=== PATIENT | male | born 1965 | race Caucasian/White ===

== ENCOUNTER 2022-04-21 07:30 | Inpatient (IN) | payer OTHER, SELFPAY ==
[2022-04-21] VITALS (60 sets, daily range): BP systolic 105–204; BP diastolic 66–143; PULSE 40–115; RESP 12–20; TEMP 36.3–36.7; O2SAT 91–98; BMI 27.3; BMI 28.2
--- NOTE | 2022-04-21 07:20 | ECG_ITS ---
APPROVED REPORT Exam: Resting ECG HR:115 bpm ECG Measurements Heart Rate 115 AXES ND 174 P 84 QRSd 121 QRS -76 QT 338 T 91 QTc 406 Conclusion SINUS TACHYCARDIA LEFT ATRIAL ENLARGEMENT [-0.15mV P-WAVE IN V1/V2] LEFT AXIS DEVIATION [QRS AXIS < -30] POSSIBLE LEFT VENTRICULAR HYPERTROPHY [VOLTAGE CRITERIA PLUS LAE OR QRS WIDENING] ST DEVIATION AND MODERATE T-WAVE ABNORMALITY, CONSIDER LATERAL ISCHEMIA [-0.1+ mV T-WAVE IN I/aVL/V5/V6] ABNORMAL ECG UNCONFIRMED REPORT Electronically signed by : Brad Rosas MD 04/21/2022 21:07:28
--- NOTE | 2022-04-21 07:50 | XR_ITS ---
PROCEDURE INFORMATION: Exam: XR Chest Exam date and time: 04/21/2022 8:29 AM Age: 57 years old Clinical indication: Pain; Chest pressure; Additional info: Chest pain TECHNIQUE: Imaging protocol: Radiologic exam of the chest. Views: 1 view. COMPARISON: No relevant prior studies available. FINDINGS: Lungs: Hyperexpanded lung gould consistent with COPD Pleural spaces: Unremarkable. No pleural effusion. No pneumothorax. Heart/Mediastinum: Cardiomegaly Bones/joints: Severe degenerative changes in the glenohumeral joints IMPRESSION: Hyperexpanded lung gould consistent with COPD
--- NOTE | 2022-04-21 07:57 | HMH.EDCP ---
Discharge Plan Disposition Chief Complaint: Chest Pain Clinical Impressions Clinical Impression: Chest pain, Hypertensive emergency, Elevated troponin, Renal insufficiency Discharge ED Provider: William (ED)Andrea Chest Pain HPI General Chief Complaint: Chest Pain Stated Complaint: SOA Time Seen by Provider: 04/21/22 07:57 Mode of Arrival: Ambulatory Source of Information: Patient, Spouse and Medical Record Limitations: No Limitations Description of Symptoms (Recalled from ER Triage Doc. by RN): pt comes in with c/o chest pain that began this morning. shortness of breath was associated with this. pt is an ex smoker. pt has not seen a primary care provider since 2021. recently pt seen dr ivy and was referred to a sand conditioner in [place]. pt states he has initial appt with them may 30. pt reports having a history of high blood pressure. and he did take 3 325mg aspirin this am around 529. History of Present Illness HPI narrative: pt with chest tightness which began on and off this am over the last 2 hrs and has assoc sob - has hx of htn - no known ht dis - no diabetes MD complaint: chest pain indicative of cardiac Onset (ago): hour(s) Duration: now resolved Activity at onset: during rest Pain location: substernal Severity: moderate Quality: tightness Pain radiation: none Risk Factors for CAD: Hypertension and Family Hx of CAD Treatments prior to or on arrival for Cardiac Chest Pain: aspirin DESTINI Score for Non-Stemi Age of Patient: 50-59 years old Heart Rate: 110-149 bpm Systolic Blood Pressure: 160-199 mmHg Serum Creatinine: 1.60-1.99 mg/dl CHF [place] Class: I-No CHF Other Risk Factors: Elevated Cardiac Enzymes or Biomarkers Non-Stemi Risk Score: 102 Risk Stratification: 1-108 = Low Risk Related Data Home Medications Medication Instructions Recorded Confirmed garlic 1,000 mg capsule 1,000 mg PO DAILY Supplement 04/21/22 04/21/22 multivitamin 1 tab PO DAILY Supplement 04/21/22 04/21/22 Allergies Allergy/AdvReac Type Severity Reaction Status Date / Time No Known Allergies Allergy Verified 04/21/22 07:50 [facility] Disclaimer: The information contained in this section may have been updated after the patient was seen, as this information can be updated by other users. Social History Smoking Status: Former smoker alcohol intake: never current occupational status: employed Travel in the last 8 weeks: None ROS Obtained: Yes All systems reviewed & no additional complaints except as documented Physical Exam General General appearance: alert Head Head exam: normocephalic Eye Eye exam: Present PERRL and EOMI ENT ENT exam: Present mucous membranes moist Neck Neck exam: Present trachea midline Respiratory Respiratory exam: Present normal lung sounds bilaterally; Absent respiratory distress Cardiovascular Cardiovascular exam: Present tachycardia and systolic murmur Abdominal Exam Abdominal exam: Present soft Extremities Exam Extremities exam: Present full ROM; Absent calf tenderness Neurological Exam Neurological exam: Present alert and CN II-XII intact; Absent motor sensory deficit Skin Skin exam: Absent rash Medical Decision Making Medical Records Medical records reviewed: Yes I reviewed the patient's medical records. Fabricio Inquiry Pt receiving controlled substance: No Vital Signs: 04/21/22 07:42 04/21/22 07:46 04/21/22 08:00 Temperature 97.6 F Temperature Source Oral Pulse Rate 99 H 97 H Pulse Rate [Left] 115 H Respiratory Rate 18 12 Blood Pressure 183/126 H 196/134 H Blood Pressure [Right Arm] 204/143 H Blood Pressure Mean 145 148 Blood Pressure Mean [Right Arm] 163 Blood Pressure Source 02 Sat by Pulse Oximetry 97 98 98 Oxygen Delivery Method Room Air 04/21/22 08:10 04/21/22 08:10 04/21/22 08:20 Temperature Temperature Source Pulse Rate 99 H 82 Pulse Rate [Left] Respiratory Rate 12 Blood Pressure 189/125 H 192/136 H 174/11
[2022-04-21 08:09] LABS: Basophils # 0.1 K/mm3 (0-0.2); Eosinophils # 0.4 K/mm3 (0.0-0.4); Eosinophils % 6.3 % (0.1-12.0); Hematocrit 43.2 % (42.0-52.0); Hemoglobin 14.2 g/dL (14.1-18.0); Lymphocytes # 1.4 K/mm3 (0.7-4.5); Lymphocytes % 20.5 % (10-50); Mean Corpuscular HGB Conc 32.9 g/dL (31.8-35.4); Mean Corpuscular Hemoglobin 30.3 pg (27.0-31.2); Mean Corpuscular Volume 92.1 fl (80-94); Mean Platelet Volume 7.5 fl (7.4-10.4); Monocytes # 0.4 K/mm3 (0.1-1.0); Monocytes % 5.6 % (1.7-9.3); Neutrophils # 4.7 K/mm3 (1.8-7.8); Neutrophils % 66.7 % (37.0-80.0); Platelet Count 263 K/mm3 (142-424); Red Blood Count 4.69 M/mm3 (4.60-6.20); Red Cell Distribution Width 14.4 % (11.5-17.5)
--- NOTE | 2022-04-21 08:16 | PC.NURSE ---
field service tech @ BS for chest x-ray
--- NOTE | 2022-04-21 08:16 | PC.NURSE ---
rad at bedside
[2022-04-21 08:23] LABS: Blood Urea Nitrogen 21 mg/dl (9-20); Calcium 9.2 mg/dl (8.4-10.2); Carbon Dioxide 29 mmol/L (22.0-30.0); Chloride 103 mmol/L (98-107); Creatinine Clearance Estimated 54 mL/min (50-200); Estimated Glomerular Filt Rate 41 ml/min (>60); GFR (African American) 50 ML/MIN (>60); Glucose 95 mg/dl (74-100); Sodium 138 mmol/L (136-145)
[2022-04-21 08:34] LABS: Troponin I 0.14 ng/ml (0.00-0.034)
[2022-04-21 08:38] LABS: Alanine Aminotransferase 18 U/L (12-78); Albumin Level 4.8 g/dl (3.5-5.0); Alkaline Phosphatase 79 U/L (38-126); Aspartate Amino Transferase 35 U/L (17-59); Bilirubin,Direct 0.5 mg/dl (0.0-0.4); Bilirubin,Indirect 0.5 mg/dL (0.0-0.9); Bilirubin,Unconjugated 0.5 mg/dL (0.0-1.1); Chol/HDL Ratio 5.4 (1-3.5); Cholesterol 307 mg/dl (140-200); HDL Cholesterol 57 mg/dl (40-60); Magnesium 2.4 mg/dl (1.6-2.3); Total Protein,Serum 9.9 g/dl (6.3-8.2); Triglycerides 100 mg/dl (30-150); VLDL Cholesterol 20 mg/dL (0-40)
--- NOTE | 2022-04-21 08:48 | ECG_ITS ---
APPROVED REPORT Exam: Resting ECG HR:83 bpm ECG Measurements Heart Rate 83 AXES AZ 197 P 78 QRSd 114 QRS -72 QT 382 T 91 QTc 421 Conclusion SINUS RHYTHM LEFT ATRIAL ENLARGEMENT [-0.15mV P-WAVE IN V1/V2] LEFT AXIS DEVIATION [QRS AXIS < -30] LEFT VENTRICULAR HYPERTROPHY AND ST-T CHANGE [VOLTAGE CRITERIA PLUS ST/T ABNORMALITY] ABNORMAL ECG UNCONFIRMED REPORT Electronically signed by : Brad Rosas MD 04/21/2022 21:07:18
--- NOTE | 2022-04-21 08:51 | HMH.ITSTN ---
advised Dr. Thomas GFR is 41-- cancel scan
--- NOTE | 2022-04-21 09:01 | PC.NURSE ---
on the phone with
--- NOTE | 2022-04-21 09:02 | PC.NURSE ---
maryuri at bedside
[2022-04-21 09:11] LABS: Free T4 (Free Thyroxine) 0.29 ng/dl (0.78-2.19)
[2022-04-21 09:15] LABS: Coronavirus 19, PCR Not Detected (NotDetected); Influenza A, PCR Not Detected (NotDetected); Influenza B, PCR Not Detected (NotDetected)
--- NOTE | 2022-04-21 09:18 | PC.NURSE ---
Deloris RN @BS
--- NOTE | 2022-04-21 09:19 | PC.NURSE ---
nitro drip adjusted per protocol see MAR
--- NOTE | 2022-04-21 09:23 | PC.NURSE ---
personnel clerks supervisor has been called for admission
--- NOTE | 2022-04-21 09:45 | PC.NURSE ---
attempted to call report to second floor
[2022-04-21 09:46] LABS: NT Pro Brain Natriuretic Pep. 9370 pg/mL (0-125)
--- NOTE | 2022-04-21 10:08 | PC.NURSE ---
gave report to marlena on 2nd floor, awaiting results of covid/flu test
--- NOTE | 2022-04-21 10:38 | PC.NURSE ---
spoke to myla about hospitilist about admit order
[2022-04-21 10:52] LABS: Troponin I 0.15 ng/ml (0.00-0.034)
--- NOTE | 2022-04-21 10:55 | PC.NURSE ---
arrived to floor by W/C from ED
--- NOTE | 2022-04-21 11:06 | PC.NURSE ---
1038 Er Staff on phone with Dr Leon asking for admit order to be entered.
--- NOTE | 2022-04-21 13:04 | PC.NURSE ---
1100 pt transported to unit by Krish Dowell RN. Nitro drip infusing at 60mcg/min 1200 drip increased to 70mcg/min r/t bp 167/107
--- NOTE | 2022-04-21 13:19 | EXP.HP ---
History of Present Illness *Admission Date: 04/21/22 *Reason for visit:: Chief Complaint: Chest Pain *History of present illness: This is a 57-year-old male who presents to [facility] emergency department with concerns of chest pain that started the morning of ED presentation. His past medical history significant for hypertension, hypothyroidism, tobacco dependence and medical noncompliance. He reports that approximately 5 AM he awoke and felt chest pain characterized as something sitting on my chest and tightness that radiated across front of his chest into his shoulders. He rated the pain greater than 8 on a 1-10 pain scale with associated shortness of air. The pain is lasted greater than 2 hours. He reports taking 3 aspirin at home. He reports it was difficult for him to walk across the parking lot to get to the ED secondary to shortness of air. In the ED his presenting blood pressure was 204/143 and his labs were remarkable for elevated troponin x2 with a BNP of 9370. His EKG did not identify STEMI changes. His chest x-ray was consistent with COPD. His ED TSH was 205. He denies confusion/mental status changes, lethargy, chills or low blood sugars. [facility] Medical History (Updated 04/21/22 @ 14:12 by Boni Leon MD) Anxiety COPD (chronic obstructive pulmonary disease) HTN (hypertension) Hyperlipidemia Hypothyroid Kidney stones Seasonal depression Surgical History H/O ureteroscopy Family History Other Coronary artery disease Hypertension Stomach cancer Throat cancer Social History Smoking Status: Former smoker smoking status stop date: 04/01/22 alcohol intake: current current occupational status: employed Travel in the last 8 weeks: None housing: house lives independently: Yes marital status: education level: high school pets and animals: Yes pets and animals: cat(s), dog(s) and farm animals Review of Systems Review of Systems Review of systems:: pertinent systems reviewed and negative unless documented below *Cardiovascular Cardiovascular: Reports chest pain and Reports chest pain at rest Meds Home Medications and Allergies Home Medications Medication Instructions Recorded Confirmed Type garlic 1,000 mg capsule 1,000 mg PO DAILY Supplement 04/21/22 04/21/22 History multivitamin 1 tab PO DAILY Supplement 04/21/22 04/21/22 History New Prescriptions to Start Prescriptions: Allergies Allergy/AdvReac Type Severity Reaction Status Date / Time No Known Allergies Allergy Verified 04/21/22 07:50 Exam Data for Last 24 hours Vital signs and Labs for Last 24 Hours: Temp Pulse Resp BP Pulse Ox 97.8 F 79 20 164/93 H 96 04/21/22 11:29 04/21/22 13:00 04/21/22 13:00 04/21/22 13:00 04/21/22 13:00 Laboratory Results - last 24 hr 04/21/22 07:33: WBC 7.0, RBC 4.69, Hgb 14.2, Hct 43.2, MCV 92.1, MCH 30.3, MCHC 32.9, RDW 14.4, Plt Count 263, MPV 7.5, Neut % (Auto) 66.7, Lymph % (Auto) 20.5, [place] % (Auto) 5.6, Eos % (Auto) 6.3, Baso % (Auto) 1.0, Neut # (Auto) 4.7, Lymph # (Auto) 1.4, [place] # (Auto) 0.4, Eos # (Auto) 0.4, Baso # (Auto) 0.1 04/21/22 07:33: Sodium 138, Potassium 4.0, Chloride 103, Carbon Dioxide 29, Anion Gap 10.0, BUN 21 H, Creatinine 1.70 H, Estimated Creat Clear 54, Estimated GFR 41 L, Est GFR ( Amer) 50 L, Glucose 95, Calcium 9.2, Troponin I 0.14 H 04/21/22 07:33: Magnesium 2.4 H, Total Bilirubin 1.0, Direct Bilirubin 0.5 H, Conjugated Bilirubin 0.0, Indirect Bilirubin 0.5, Unconjugated Bilirubin 0.5, AST 35, ALT 18, Alkaline Phosphatase 79, Total Protein 9.9 H, Albumin 4.8, TSH 205.00 H 04/21/22 07:33: Triglycerides 100, Cholesterol 307 H, LDL Cholesterol Direct 164.20 H, VLDL Cholesterol 20, HDL Cholesterol 57, Cholesterol/HDL Ratio 5.4 H 04/21/22 07:33: Free T4 0.29
[2022-04-21 14:55] LABS: Troponin I 0.21 ng/ml (0.00-0.034)
--- NOTE | 2022-04-21 16:06 | PC.NURSE ---
Addendum entered by Camilla Pina RN 04/21/22 17:33: critical lab value received [address] Leon of critical lab value. nno 1730 Original Note: critical lab value received at 1455. troponin 0.[address] Leon face to face of lab value. 1510. no new orders.
[2022-04-21 17:21] LABS: Troponin I 0.21 ng/ml (0.00-0.034)
--- NOTE | 2022-04-21 19:32 | PC.NURSE ---
BP 181/114, Nitro gtt titrated to 80 mcg/min at this time.
--- NOTE | 2022-04-21 20:35 | PC.NURSE ---
Pt bp 184/118, nitro gtt titrated up to 90mcg/min at this time.
--- NOTE | 2022-04-21 23:00 | ECG_ITS ---
APPROVED REPORT Exam: Resting ECG HR:68 bpm ECG Measurements Heart Rate 68 AXES CO 186 P 71 QRSd 118 QRS -57 QT 432 T 118 QTc 450 Conclusion SINUS RHYTHM POSSIBLE LEFT ATRIAL ENLARGEMENT [-0.1mV P-WAVE IN V1/V2] LEFT AXIS DEVIATION [QRS AXIS < -30] LEFT VENTRICULAR HYPERTROPHY AND ST-T CHANGE [VOLTAGE CRITERIA PLUS ST/T ABNORMALITY] ABNORMAL ECG UNCONFIRMED REPORT Electronically signed by : Brad Rosas MD 04/22/2022 21:03:11
--- NOTE | 2022-04-21 23:00 | PC.NURSE ---
2230 Pt became very diaphoretic c/o nausea. BP dropped to 105/67, HR dropped to into 40s. Nitro put on standby, PER DIEM PHYSICAL THERAPIST called to bedside and EKG performed. Pt now states he feels much better, BP 157/106, HR 73. Nitro restarted at 45mcg/min.
[2022-04-22] VITALS (29 sets, daily range): BP systolic 140–190; BP diastolic 72–113; PULSE 64–90; RESP 14–20; TEMP 36.4–36.9; O2SAT 93–98; BMI 28.2
--- NOTE | 2022-04-22 03:35 | PC.NURSE ---
Drip titrated up to 55mcg/min per Benito Warner. BP 169/96.
[2022-04-22 06:29] LABS: Basophils % 0.5 % (0.1-2.0); Eosinophils # 0.1 K/mm3 (0.0-0.4); Eosinophils % 0.6 % (0.1-12.0); Hematocrit 33.8 % (42.0-52.0); Lymphocytes # 0.7 K/mm3 (0.7-4.5); Lymphocytes % 8.2 % (10-50); Mean Corpuscular HGB Conc 32.6 g/dL (31.8-35.4); Mean Corpuscular Hemoglobin 30.1 pg (27.0-31.2); Mean Corpuscular Volume 92.2 fl (80-94); Mean Platelet Volume 8.1 fl (7.4-10.4); Monocytes # 0.4 K/mm3 (0.1-1.0); Neutrophils # 7.2 K/mm3 (1.8-7.8); Neutrophils % 85.7 % (37.0-80.0); Platelet Count 211 K/mm3 (142-424); Red Blood Count 3.67 M/mm3 (4.60-6.20); Red Cell Distribution Width 14.6 % (11.5-17.5); White Blood Count 8.4 K/mm3 (4.8-10.8)
--- NOTE | 2022-04-22 06:31 | PC.NURSE ---
Pt remains on Nitro gtt at 55mcg/min. Maintaining SBP <160. Current BP 155/83. Pt has remained BBB w/ inv. T waves on tele t/o shift. Occasional PVC noted. Lung sounds clear. at bedside. Call light within reach.
[2022-04-22 06:32] LABS: Blood Urea Nitrogen 24 mg/dl (9-20); Calcium 8.5 mg/dl (8.4-10.2); Carbon Dioxide 24 mmol/L (22.0-30.0); Chloride 105 mmol/L (98-107); Creatinine Clearance Estimated 59 mL/min (50-200); Estimated Glomerular Filt Rate 44 ml/min (>60); GFR (African American) 54 ML/MIN (>60); Glucose 108 mg/dl (74-100); Sodium 133 mmol/L (136-145)
[2022-04-22 06:53] LABS: MANUAL DIFFERENTIAL MANUAL DIFFERENTIAL (MANUAL DIFF)
[2022-04-22 07:50] LABS: Lymphocytes % 12 % (10-50); Monocytes % 4 % (2-9); Neutrophils % 84 % (42-76); Platelet Estimate Normal; RBC Morphology Normal; Total Cells Counted 100
[2022-04-22 07:51] LABS: Hemoglobin A1C 5.3 % (4.0-6.0)
--- NOTE | 2022-04-22 08:44 | ECG_ITS ---
APPROVED REPORT Exam: Resting ECG HR:82 bpm ECG Measurements Heart Rate 82 AXES MD 175 P 29 QRSd 114 QRS -55 QT 398 T 107 QTc 436 Conclusion SINUS RHYTHM POSSIBLE LEFT ATRIAL ENLARGEMENT [-0.1mV P-WAVE IN V1/V2] LEFT AXIS DEVIATION [QRS AXIS < -30] LEFT VENTRICULAR HYPERTROPHY AND ST-T CHANGE [VOLTAGE CRITERIA PLUS ST/T ABNORMALITY] ABNORMAL ECG UNCONFIRMED REPORT Electronically signed by : Brad Rosas MD 04/22/2022 21:01:51
--- NOTE | 2022-04-22 10:19 | IR_ITS ---
APPROVED REPORT Patient Location: Inpatient [facility] Door Liner: HARIS Yang RT (R) PROCEDURES Selective coronary angiogram Drug-eluting stent deployment to the proximal circumflex artery Drug-eluting stent deployment to the mid LAD Bilateral selective renal angiography INDICATION Acute non-ST elevation myocardial infarction, Acute critical coronary disease, Malignant hypertension, Chronic renal failure creatinine 1.6, Renovascular hypertension, Suspected renal artery stenosis Informed consent was obtained prior to the procedure. COMPLICATIONS None Estimated Blood Loss: Less than 10 mls TECHNIQUE One percent lidocaine used to anesthetize the right anterior aspect of the wrist. The right radial artery was accessed via the Seldinger technique. A 6 Arabic sheath was placed in the right radial artery. 2.5 mg of verapamil, 800 mcg of nitroglycerin, 1mg Lidocaine and 5000 U Heparin were given through the arterial sheath. The papa catheter was also used to perform selective coronary angiography. At the end the diagnostic angiogram therapeutic heparin was administered giving a therapeutic ACT and the guide catheter was placed in left main artery followed by Choice PT extra-support wire being placed on the circumflex artery. A 3.5 x 18 mm resolute [place] stent was deployed at 20 rebecca in the proximal circumflex artery reducing the severe stenosis to 0%. An additional wire was placed on the LAD and a 3.5 x 38 mm resolute [place] stent was deployed at 14 rebecca reducing the severe stenosis to 0%. JORGE-3 flow was present before and after the procedure down both the LAD and the circumflex artery. At the end of the diagnostic heart procedure a JR4 guide catheter was used to perform bilateral selective renal angiography. At the end the procedure the apparatus was removed the sheath was removed and hemostasis was achieved using TR banding patient was transferred the postop putting in stable condition ANGIOGRAPHIC RESULTS The left main artery Normal The left anterior descending artery Has a long proximal 30 to 40% smooth stenosis which then has a 70 to 80% concentric mid vessel stenosis The circumflex artery Is a large nondominant vessel with a proximal critical 90% stenosis. A large second obtuse marginal artery has a proximal 40 to 50% stenosis The right coronary artery Large dominant with mild 10 to 20% luminal irregularities The GONZALEZ ventriculogram reveals Not performed The left ventricular end-diastolic pressure Not measured Left renal artery singular normal Right renal artery singular with ostial 10 to 20% eccentric stenosis IMPRESSION Critical coronary disease as described above with successful stenting of the proximal circumflex artery critical disease reduced to 0% with 1 drug-eluting stent Severe disease in the mid LAD with successful stenting reducing the stenosis to 0% with 1 drug-eluting stent Persistent mild to moderate disease in the proximal LAD and a large second obtuse marginal artery as described above Mild left renal artery stenosis PLAN 1. Brilinta 90 twice daily plus aspirin 81 mg daily 2. Aggressive control of hypertension 3. Treatment of hypertensive nephropathy with beta-blockers and if patient can tolerate CORNELIUS inhibitors 4. LDL less than 55 to be achieved with high intensity statin 5. Avoidance of tobacco products 6. Risk factor modification Electronically signed by : Oskar Zimmerman MD 04/22/2022 14:25:03
--- NOTE | 2022-04-22 12:09 | EXP.CARD.CON ---
History of Present Illness History of Present Illness Consult date: 04/22/22 Requesting physician: Boni Leon Consult reason: chest pain and hypertension Chief complaint: chest pain, htn History of present illness: 57 year old white male, with significant past medical hx for HTN, Hypothyroidism, tobacco dependence and medical non compliance presented to ER with complaint of midsternal chest pressure, radiating across chest and into shoulders, associated with soa and mild nausea and fatigue. Patient reports symptoms started at 5am upon awakening and continued which prompted him to come to ER. Reports upon presenting to ER, had difficulty ambulating into facility from car due to his soa. Upon presentation to ED, BP was elevated with systolic BP being greater than 200. Labs significant as follow: WBC 8.4, RBC 3.6, hemoglobin 11, sodium 133, potassium 4.0, BUN 24, creatinine 1.6, and troponin 0.21 trending to 0.2. Chest x-ray was positive for hyperexpanded lung gould consistent with COPD. Initial EKG was sinus tachycardia with a rate of 115, possible LVH, ST deviation and moderate T wave abnormality noted, with st depression noted in V6. Patient was admitted for NSTEMI, hypertensive urgency, and further evaluation by cardiology [facility] Disclaimer: The information contained in this section may have been updated after the patient was seen, as this information can be updated by other users. Medical History (Updated 04/21/22 @ 14:12 by Boni Leon MD) Anxiety COPD (chronic obstructive pulmonary disease) HTN (hypertension) Hyperlipidemia Hypothyroid Kidney stones Seasonal depression Surgical History H/O ureteroscopy Family History Other Coronary artery disease Hypertension Stomach cancer Throat cancer Social History Smoking Status: Former smoker smoking status stop date: 04/01/22 alcohol intake: current current occupational status: employed Travel in the last 8 weeks: None housing: house lives independently: Yes marital status: education level: high school pets and animals: Yes pets and animals: cat(s), dog(s) and farm animals Review of Systems Review of Systems Review of systems:: pertinent systems reviewed and negative unless documented below Constitutional Constitutional: Reports system reviewed and no additional complaints, except as documented *Cardiovascular Cardiovascular: Reports system reviewed and no additional complaints, except as documented, Reports chest pain and Reports dyspnea *Respiratory Respiratory: Reports system reviewed and no additional complaints, except as documented and Reports dyspnea *Gastrointestinal Gastrointestinal: Reports system reviewed and no additional complaints, except as documented *Neurologic Neurologic: Reports system reviewed and no additional complaints, except as documented and Denies confusion Psychiatric Psychiatric: Reports system reviewed and no additional complaints, except as documented and Denies confusion Exam Data for Last 24 hours Vital signs and Labs for Last 24 Hours: Temp Pulse Resp BP Pulse Ox 97.7 F 82 18 182/113 H 96 04/22/22 08:00 04/22/22 10:00 04/22/22 10:00 04/22/22 10:00 04/22/22 10:00 Laboratory Results - last 24 hr 04/21/22 14:00: Troponin I 0.21 H 04/21/22 16:45: Troponin I 0.21 H 04/21/22 19:50: Troponin I 0.20 H 04/22/22 05:28: Hemoglobin A1c 5.3 04/22/22 05:28: WBC 8.4, RBC 3.67 L, Hgb 11.0 L D, Hct 33.8 L, MCV 92.2, MCH 30.1, MCHC 32.6, RDW 14.6, Plt Count 211, MPV 8.1, Neut % (Auto) 85.7 H, Lymph % (Auto) 8.2 L, [place] % (Auto) 5.0, Eos % (Auto) 0.6, Baso % (Auto) 0.5, Neut # (Auto) 7.2, Lymph # (Auto) 0.7, [place] # (Auto) 0.4, Eos # (Auto) 0.1, Baso # (Auto) 0.0, Total Counted 100, Neutrophils % (Manual) 84 H, Lymphocytes % (Manual) 12, Monocytes % (Manu
--- NOTE | 2022-04-22 15:08 | PC.NURSE ---
per EDUARD Filed from clinical laboratory scientist, pt can stay off nitro gtt if SBP stays at 160 or below
[2022-04-22 16:13] LABS: CATHL Activated Clotting Time 253 SEC (74-125)
--- NOTE | 2022-04-22 17:53 | EXP.PN ---
Subjective *Date: 04/22/22 *Time: 17:53 Interval history: Date of service 04/22/2022 The patient reports no acute events overnight. Nursing staff report that he remains afebrile with stable vital signs and saturating appropriately on room air. He is due for his left heart cath today. Exam Data for Last 24 hours Vital signs and Labs for Last 24 Hours: Temp Pulse Resp BP Pulse Ox 98.4 F 78 20 165/95 H 95 04/22/22 16:00 04/22/22 15:05 04/22/22 15:05 04/22/22 15:05 04/22/22 15:05 Laboratory Results - last 24 hr 04/21/22 19:50: Troponin I 0.20 H 04/22/22 05:28: Hemoglobin A1c 5.3 04/22/22 05:28: WBC 8.4, RBC 3.67 L, Hgb 11.0 L D, Hct 33.8 L, MCV 92.2, MCH 30.1, MCHC 32.6, RDW 14.6, Plt Count 211, MPV 8.1, Neut % (Auto) 85.7 H, Lymph % (Auto) 8.2 L, [place] % (Auto) 5.0, Eos % (Auto) 0.6, Baso % (Auto) 0.5, Neut # (Auto) 7.2, Lymph # (Auto) 0.7, [place] # (Auto) 0.4, Eos # (Auto) 0.1, Baso # (Auto) 0.0, Total Counted 100, Neutrophils % (Manual) 84 H, Lymphocytes % (Manual) 12, Monocytes % (Manual) 4, Platelet Estimate Normal, RBC Morphology Normal 04/22/22 05:28: Sodium 133 L, Potassium 4.0, Chloride 105, Carbon Dioxide 24, Anion Gap 8.0, BUN 24 H, Creatinine 1.60 H, Estimated Creat Clear 59, Estimated GFR 44 L, Est GFR ( Amer) 54 L, Glucose 108 H, Calcium 8.5 04/22/22 15:05: Activated Clotting Time 253 H* I & O for Last 24 hours: Intake & Output 04/19/22 04/20/22 04/21/22 04/22/22 23:59 23:59 23:59 23:59 Intake Total 751.100 / 751.100 0 / 0 Output Total 150 / 150 450 / 450 Balance 601.100 / 601.100 -450 / -450 Weight 84.141 kg 84.459 kg Constitutional Constitutional: no acute distress *Routine HEENT Exam Head: Present normocephalic Eye: Present EOMI and PERRL ENT: Present mucous membranes moist *Routine Neck Exam Neck: Present supple; Absent lymphadenopathy *Routine Respiratory Exam Respiratory: Present CTA bilaterally *Routine Cardiovascular Exam Cardiovascular: Present RRR *Routine Abdominal Exam Abdominal: Present soft and normoactive bowel sounds; Absent tenderness *Routine Extremities Exam Extremities: Absent cyanosis, clubbing or edema *Routine Skin Exam Skin: Present warm; Absent rash *Routine Neurological Exam Neurological: Present alert and oriented X3 Assessment and Plan *Assessment and plan (1) NSTEMI (non-ST elevated myocardial infarction): Status: Acute Category: Medical Code(s): I21.4 - Non-ST elevation (NSTEMI) myocardial infarction (2) Hypertensive emergency: Status: Acute Category: Medical Code(s): I16.1 - Hypertensive emergency (3) CASSIDY (acute kidney injury): Status: Acute Category: Medical Code(s): N17.9 - Acute kidney failure, unspecified (4) COPD (chronic obstructive pulmonary disease): Status: Acute Category: Medical Code(s): J44.9 - Chronic obstructive pulmonary disease, unspecified (5) Hypothyroid: Status: Acute Category: Medical Code(s): E03.9 - Hypothyroidism, unspecified Plan This is a 57 yo male that presented to [facility] ED with chest pain. His presenting blood pressure was uncontrolled. Troponins were positive. He was started on nitroglycerin drip and admitted to telemetry. Problems addressed are as follows: NSTEMI Telemetry monitoring Cardiology consult noted ED ECG reviewed Troponin trend noted Fasting lipid panel reviewed with total cholesterol 307, LDL 164, HDL 57 Antiplatelet therapy P2Y12 inhibitor therapy Beta-sushma therapy Echocardiogram pending Parenterally administered controlled substance for comfort care Hypertensive emergency Routine blood pressure monitoring Nitroglycerin drip weaned Trending labs and inflammatory markers Echocardiogram pending Acute kidney injury Baseline creatinine unknown Trend electrolytes and creatinine Avoiding NSAIDs Gentle IV fluid resuscitation COPD Pulse oximetry monitoring [place]
[2022-04-23] VITALS (7 sets, daily range): BP systolic 114–148; BP diastolic 62–87; PULSE 60–70; RESP 15–20; TEMP 36.6–36.7; O2SAT 94–98; BMI 27.8
[2022-04-23 06:08] LABS: Basophils # 0.1 K/mm3 (0-0.2); Basophils % 1.2 % (0.1-2.0); Eosinophils # 0.3 K/mm3 (0.0-0.4); Eosinophils % 4.4 % (0.1-12.0); Lymphocytes # 0.9 K/mm3 (0.7-4.5); Lymphocytes % 14.4 % (10-50); Mean Corpuscular HGB Conc 32.3 g/dL (31.8-35.4); Mean Corpuscular Volume 92.9 fl (80-94); Mean Platelet Volume 7.6 fl (7.4-10.4); Monocytes # 0.4 K/mm3 (0.1-1.0); Monocytes % 6.5 % (1.7-9.3); Neutrophils # 4.6 K/mm3 (1.8-7.8); Neutrophils % 73.5 % (37.0-80.0); Platelet Count 190 K/mm3 (142-424); Red Blood Count 3.66 M/mm3 (4.60-6.20); Red Cell Distribution Width 14.7 % (11.5-17.5); White Blood Count 6.3 K/mm3 (4.8-10.8)
[2022-04-23 06:19] LABS: Blood Urea Nitrogen 23 mg/dl (9-20); Calcium 8.4 mg/dl (8.4-10.2); Carbon Dioxide 25 mmol/L (22.0-30.0); Chloride 106 mmol/L (98-107); Creatinine Clearance Estimated 55 mL/min (50-200); Estimated Glomerular Filt Rate 41 ml/min (>60); GFR (African American) 50 ML/MIN (>60); Glucose 93 mg/dl (74-100)
[2022-04-23 06:24] LABS: Sodium 135 mmol/L (136-145)
--- NOTE | 2022-04-23 07:32 | EXP.DC.SUM ---
General Admission date:: 04/21/22 Discharge date: 04/23/22 HPI HPI HPI: This is a 57-year-old male who presents to [facility] emergency department with concerns of chest pain that started the morning of ED presentation. His past medical history significant for hypertension, hypothyroidism, tobacco dependence and medical noncompliance. He reports that approximately 5 AM he awoke and felt chest pain characterized as something sitting on my chest and tightness that radiated across front of his chest into his shoulders. He rated the pain greater than 8 on a 1-10 pain scale with associated shortness of air. The pain is lasted greater than 2 hours. He reports taking 3 aspirin at home. He reports it was difficult for him to walk across the parking lot to get to the ED secondary to shortness of air. In the ED his presenting blood pressure was 204/143 and his labs were remarkable for elevated troponin x2 with a BNP of 9370. His EKG did not identify STEMI changes. His chest x-ray was consistent with COPD. His ED TSH was 205. He denies confusion/mental status changes, lethargy, chills or low blood sugars. Hospital Course Hospital Course Hospital Course: This is a 57 yo male that presented to [facility] ED with chest pain.? His presenting blood pressure was uncontrolled.? Troponins were positive.? He was started on nitroglycerin drip and admitted to telemetry.? Problems addressed are as follows: NSTEMI Hypertensive emergency CAD Initiated on nitroglycerin drip and monitored on telemetry. Cardiology was consulted. EKG showed nonspecific EKG changes with no STEMI noted. Troponin monitored, peaked at 0.21. Decision made to take patient to the Logistics System [facility] for left heart cath. Received drug-eluting stents to the circumflex and LAD. See cath report for full details as follows. Patient had improvement in blood pressure. Stable on goal-directed therapy with DAPT, beta-sushma, statin, ARB. Echo obtained but pending at time of discharge. After discharge, noted to have reduced EF of 20 to 25%. Cardiology has subsequently contacted patient for LifeVest placement and transition to Entresto. Patient's symptoms resolved after heart cath with no chest pain. Will need close follow-up with cardiology for further adjustment of medication and monitoring. Patient to keep blood pressure log twice daily between discharge and follow-up with cardiology. Cardiac meds for discharge Aspirin 81 mg p.o. daily Brilinta 90 mg p.o. twice daily Carvedilol 25 mg p.o. twice daily Entresto Atorvastatin 40 mg p.o. daily Hyperlipidemia Fasting lipid panel reviewed with total cholesterol of 307, LDL of 164, and HDL of 57. Initiated on high intensity statin. Further adjustment as an outpatient Acute kidney injury versus CKD Creatinine 1.6 during admission. Remained stable. Suspect this is his baseline. Hypothyroid: TSH 205, free T4 0.29. Started on levothyroxine. Discharged on 75 mcg daily. Needs repeat labs in 4 to 6 weeks to monitor improvement and for further adjustment IMPRESSION Critical coronary disease as described above with successful stenting of the proximal circumflex artery critical disease reduced to 0% with 1 drug-eluting stent Severe disease in the mid LAD with successful stenting reducing the stenosis to 0% with 1 drug-eluting stent Persistent mild to moderate disease in the proximal LAD and a large second obtuse marginal artery as described above Mild left renal artery stenosis PLAN 1. Brilinta 90 twice daily plus aspirin 81 mg daily 2. Aggressive control of hypertension 3. Treatment of hypertensive nephropathy with beta-blockers and if patient can tolerate CORNELIUS inhibitors 4. LDL less than 55 to be achieved with high intensity statin 5. Avoidance of tobacco products 6. Risk factor modification Exam Data for Last 24 hours Vital signs and Labs for Last 24 Hours: Temp Pulse Resp BP Pulse Ox 97.8 F 65 16
--- NOTE | 2022-04-23 10:49 | EXP.CARD.PN ---
Subjective Subjective Date: 04/23/22 Time: 08:00 Principal diagnosis: NSTEMI and hypertension Interval history: Patient status post left heart cath 04/22/2022, see report below. Blood pressure improved and stable, a.m. labs reviewed Left heart cath 04/22/2022: ANGIOGRAPHIC RESULTS The left main artery Normal The left anterior descending artery Has a long proximal 30 to 40% smooth stenosis which then has a 70 to 80% concentric mid vessel stenosis The circumflex artery Is a large nondominant vessel with a proximal critical 90% stenosis.? A large second obtuse marginal artery has a proximal 40 to 50% stenosis The right coronary artery Large dominant with mild 10 to 20% luminal irregularities The GONZALEZ ventriculogram reveals Not performed The left ventricular end-diastolic pressure Not measured Left renal artery singular normal Right renal artery singular with ostial 10 to 20% eccentric stenosis IMPRESSION Critical coronary disease as described above with successful stenting of the proximal circumflex artery critical disease reduced to 0% with 1 drug-eluting stent Severe disease in the mid LAD with successful stenting reducing the stenosis to 0% with 1 drug-eluting stent Persistent mild to moderate disease in the proximal LAD and a large second obtuse marginal artery as described above Mild left renal artery stenosis PLAN 1. Brilinta 90 twice daily plus aspirin 81 mg daily 2. Aggressive control of hypertension 3. Treatment of hypertensive nephropathy with beta-blockers and if patient can tolerate CORNELIUS inhibitors 4. LDL less than 55 to be achieved with high intensity statin 5. Avoidance of tobacco products 6. Risk factor modification Exam Data for Last 24 hours Vital signs and Labs for Last 24 Hours: Temp Pulse Resp BP Pulse Ox 97.8 F 69 17 148/73 H 98 04/23/22 08:00 04/23/22 08:00 04/23/22 08:00 04/23/22 08:00 04/23/22 08:00 Laboratory Results - last 24 hr 04/22/22 15:05: Activated Clotting Time 253 H* 04/23/22 05:38: WBC 6.3, RBC 3.66 L, Hgb 11.0 L, Hct 34.0 L, MCV 92.9, MCH 30.0, MCHC 32.3, RDW 14.7, Plt Count 190, MPV 7.6, Neut % (Auto) 73.5, Lymph % (Auto) 14.4, [place] % (Auto) 6.5, Eos % (Auto) 4.4, Baso % (Auto) 1.2, Neut # (Auto) 4.6, Lymph # (Auto) 0.9, [place] # (Auto) 0.4, Eos # (Auto) 0.3, Baso # (Auto) 0.1 04/23/22 05:38: Sodium 135 L, Potassium 4.0, Chloride 106, Carbon Dioxide 25, Anion Gap 8.0, BUN 23 H, Creatinine 1.70 H, Estimated Creat Clear 55, Estimated GFR 41 L, Est GFR ( Amer) 50 L, Glucose 93, Calcium 8.4 I & O for Last 24 hours: Intake & Output 04/20/22 04/21/22 04/22/22 04/23/22 23:59 23:59 23:59 23:59 Intake Total 751.100 / 751.100 240 / 240 Output Total 150 / 150 750 / 750 0 / 0 Balance 601.100 / 601.100 -510 / -510 0 / 0 Weight 185 lb 8 oz 186 lb 3.2 oz 184 lb 1 oz Constitutional Constitutional: no acute distress *Routine Respiratory Exam Respiratory: Present CTA bilaterally and symmetric chest movement *Routine Cardiovascular Exam Cardiovascular: Present RRR, Normal S1 and Normal S2 *Routine Abdominal Exam Abdominal: Present soft and normoactive bowel sounds; Absent tenderness *Routine Extremities Exam Extremities: Present full ROM and normal capillary refill; Absent edema Comments: Right radial access point: Mild bruising and tenderness present. No obvious bleeding or swelling noted. *Routine Skin Exam Skin: Present intact, dry and warm Detailed Neck Exam: Thyroids Thyroid: Absent bruit Progress Note: A&P Assessment and plan (1) NSTEMI (non-ST elevated myocardial infarction): Status: Acute (2) Hypertensive emergency: Status: Acute (3) CASSIDY (acute kidney injury): Status: Acute (4) COPD (chronic obstructive pulmonary disease): Status: Acute (5) Hypothyroid: Status: Acute Assessment and Plan Assessment and Plan for All Diagnoses:: NSTEMI -nonspecific EKG changes noted, NO STEMI noted. -Troponin elevated at 0.21 -echo pending
--- NOTE | 2022-04-23 12:41 | HMH.PHACL ---
PHA Third Hand Discharge Med Prefabricated Houses Trimmer: Alexis Lees JR has received discharge medication counseling on the following medications: -ASPIRIN (BLOOD THINNER, DAILY, BLEED/BRUISE RISK, BUMP HEAD = GO TO ER TO RULE OUT HEAD BLEED) -ATORVASTATIN (FOR CHOLESTEROL, TAKE AT BEDTIME, WATCH FOR MUSCLE PAIN/WEAKNESS) -CARVEDILOL (FOR BLOOD PRESSURE, TWICE DAILY, TAKE WITH FOOD, DIZZINESS, LIGHTHEADEDNESS, HEADACHE, FATIGUE, SLOWED HEART RATE, LOW BP POSSIBLE) -LOSARTAN (FOR BLOOD PRESSURE, DAILY, DIZZINESS, LIGHTHEADEDNESS, LOW BP, EXTREMITY SWELLING, COUGH POSSIBLE) -BRILINTA (BLOOD THINNER, TWICE DAILY, BLEED/BRUISE RISK, BLEED LOCATION AND APPEARANCE, SHORTNESS OF BREATH POSSIBLE) -PANTOPRAZOLE (FOR REFLUX/STOMACH ACID, DAILY, TAKE CONSISTENTLY DAILY FOR BEST EFFECT, WILL NOT WORK IF TAKEN AFTER SYMPTOMS START) -LEVOTHYROXINE (FOR THYROID, DAILY, TAKE ON EMPTY STOMACH) PATIENT AND VERBALIZED NO QUESTIONS AT THIS TIME.
--- NOTE | 2022-04-23 13:50 | PC.NURSE ---
Pt will obtain meds from clinic pharmacy [facility]. Decided not to do meds to beds.
--- NOTE | 2022-04-24 13:43 | CARE MANAGER ---
Patient states he is doing better and was able to get his medications and is aware of his follow up appointments. He denies any questions or concerns. EDUARD [employer]is
== END 2022-04-23 14:03 | disposition home or self-care (01) | DRG 247 ==
LOC: ER 07:56 → 2ND 10:06
PROVIDERS: Internal Medicine; Admitting Provider Family Medicine; Emergency Provider Emergency Medicine; Visit Provider Family Medicine
PROC: 027135Z Dilation of Coronary Artery, Two Arteries with Two Drug-eluting Intraluminal Devices, Percutaneous Approach (ICD-10-PCS; principal; 2022-04-22 13:45)
DX: I21.4 Non-ST elevation (NSTEMI) myocardial infarction (principal); I16.1 Hypertensive emergency; I16.0 Hypertensive urgency; I25.10 Atherosclerotic heart disease of native coronary artery without angina pectoris; J44.9 Chronic obstructive pulmonary disease, unspecified; E78.5 Hyperlipidemia, unspecified; E03.9 Hypothyroidism, unspecified; Z87.442 Personal history of urinary calculi; I12.9 Hypertensive chronic kidney disease with stage 1 through stage 4 chronic kidney disease, or unspecified chronic kidney disease; N18.9 Chronic kidney disease, unspecified
CPT/HCPCS: C9600 ×2; 36415; 71045; 80048; 80061; 80076; 83036; 83735; 83880; 84439; 84443; 84484; 85007; 85025; 85347; 92928; 93005; 93306; 93454; 99152; 99153; 99285; C1725; C1769; C1876; C9803; J1644; Q9967; U0003; U0005

== ENCOUNTER → 2022-04-25 11:24 | Outpatient (CLI) | payer OTHER, SELFPAY ==
[2022-04-25 12:24] LABS: Chloride 105 mmol/L (98-107); Sodium 138 mmol/L (136-145)
[2022-04-25 12:25] LABS: Potassium 4.3 mmoL/L (3.5-5.1)
[2022-04-25 12:27] LABS: Blood Urea Nitrogen 23 mg/dl (9-20); Estimated Glomerular Filt Rate 41 ml/min (>60); GFR (African American) 50 ML/MIN (>60)
[2022-04-25 12:28] LABS: Anion Gap 10.3 mEq/L (5-15); Calcium 8.6 mg/dl (8.4-10.2); Carbon Dioxide 27 mmol/L (22.0-30.0); Glucose 94 mg/dl (74-100)
== END ==
PROVIDERS: PCP Family Medicine; Visit Provider Nurse Practitioner
DX: N17.9 Acute kidney failure, unspecified (principal)
CPT/HCPCS: 36415; 80048

== ENCOUNTER → 2022-05-01 10:15 | Outpatient (CLI) | payer OTHER, SELFPAY ==
[2022-05-01 11:08] LABS: Hematocrit 39.8 % (42.0-52.0); Hemoglobin 12.6 g/dL (14.1-18.0)
[2022-05-01 11:23] LABS: Blood Urea Nitrogen 26 mg/dl (9-20); Estimated Glomerular Filt Rate 36 ml/min (>60); GFR (African American) 44 ML/MIN (>60)
== END ==
PROVIDERS: PCP Family Medicine; Visit Provider Internal Medicine
DX: N17.9 Acute kidney failure, unspecified (principal)
CPT/HCPCS: 36415; 82565; 84520; 85014; 85018

== ENCOUNTER 2022-05-09 09:48 | Outpatient (RCR) | payer OTHER, SELFPAY | END 2022-07-04 11:25 | disposition home or self-care (01) | LOC: PT 09:48 | PROVIDERS: Visit Provider Internal Medicine | DX: I25.10 Atherosclerotic heart disease of native coronary artery without angina pectoris (principal); Z95.5 Presence of coronary angioplasty implant and graft | CPT/HCPCS: 93798 ==

== ENCOUNTER → 2022-05-23 10:44 | Outpatient (CLI) | payer OTHER, SELFPAY | PROVIDERS: PCP Family Medicine; Visit Provider Nurse Practitioner Family | DX: I21.4 Non-ST elevation (NSTEMI) myocardial infarction (principal); I25.10 Atherosclerotic heart disease of native coronary artery without angina pectoris; I50.20 Unspecified systolic (congestive) heart failure | CPT/HCPCS: 93308 ==

== ENCOUNTER → 2022-05-27 14:18 | Outpatient (CLI) | payer OTHER, SELFPAY ==
[2022-05-27 15:52] LABS: Chloride 100 mmol/L (98-107); Potassium 4.3 mmoL/L (3.5-5.1); Sodium 138 mmol/L (136-145)
[2022-05-27 15:54] LABS: Blood Urea Nitrogen 27 mg/dl (9-20); Estimated Glomerular Filt Rate 36 ml/min (>60); GFR (African American) 44 ML/MIN (>60)
[2022-05-27 15:55] LABS: Anion Gap 13.3 mEq/L (5-15); Calcium 8.8 mg/dl (8.4-10.2); Carbon Dioxide 29 mmol/L (22.0-30.0); Glucose 84 mg/dl (74-100)
== END ==
PROVIDERS: PCP Family Medicine; Visit Provider Nurse Practitioner
DX: I25.10 Atherosclerotic heart disease of native coronary artery without angina pectoris (principal); I50.20 Unspecified systolic (congestive) heart failure; I11.0 Hypertensive heart disease with heart failure; E78.2 Mixed hyperlipidemia
CPT/HCPCS: 36415; 80048

== ENCOUNTER → 2022-06-04 14:02 | Outpatient (CLI) | payer OTHER, SELFPAY ==
[2022-06-04 16:48] LABS: Alanine Aminotransferase 25 U/L (12-78); Albumin Level 4.1 g/dl (3.5-5.0); Albumin/Globulin Ratio 1.2 (1.1-1.8); Alkaline Phosphatase 64 U/L (38-126); Anion Gap 12.6 mEq/L (5-15); Aspartate Amino Transferase 31 U/L (17-59); Bilirubin,Total 0.7 mg/dl (0.2-1.3); Blood Urea Nitrogen 32 mg/dl (9-20); Calcium 8.6 mg/dl (8.4-10.2); Carbon Dioxide 27 mmol/L (22.0-30.0); Chloride 103 mmol/L (98-107); Chol/HDL Ratio 3.3 (1-3.5); Cholesterol 143 mg/dl (140-200); Estimated Glomerular Filt Rate 34 ml/min (>60); GFR (African American) 42 ML/MIN (>60); Globulin 3.4 g/dL (1.3-3.2); Glucose 92 mg/dl (74-100); HDL Cholesterol 43 mg/dl (40-60); Potassium 4.6 mmoL/L (3.5-5.1); Sodium 138 mmol/L (136-145); Total Protein,Serum 7.5 g/dl (6.3-8.2); Triglycerides 142 mg/dl (30-150); VLDL Cholesterol 28 mg/dL (0-40)
[2022-06-04 17:00] LABS: Direct LDL Cholesterol 68.46 mg/dL (100-129)
== END ==
PROVIDERS: PCP Family Medicine; Visit Provider Family Medicine
DX: E03.9 Hypothyroidism, unspecified (principal); I10 Essential (primary) hypertension; E78.2 Mixed hyperlipidemia; N17.9 Acute kidney failure, unspecified; Z12.5 Encounter for screening for malignant neoplasm of prostate
CPT/HCPCS: 36415; 80053; 80061; 84443; G0103

== ENCOUNTER → 2022-07-12 11:01 | Outpatient (CLI) | payer OTHER, SELFPAY ==
[2022-07-12 12:26] LABS: Alanine Aminotransferase 35 U/L (12-78); Albumin Level 4.2 g/dl (3.5-5.0); Albumin/Globulin Ratio 1.2 (1.1-1.8); Alkaline Phosphatase 75 U/L (38-126); Anion Gap 16.9 mEq/L (5-15); Aspartate Amino Transferase 41 U/L (17-59); Bilirubin,Total 0.9 mg/dl (0.2-1.3); Blood Urea Nitrogen 26 mg/dl (9-20); Calcium 8.9 mg/dl (8.4-10.2); Carbon Dioxide 26 mmol/L (22.0-30.0); Chloride 102 mmol/L (98-107); Estimated Glomerular Filt Rate 39 ml/min (>60); GFR (African American) 47 ML/MIN (>60); Globulin 3.6 g/dL (1.3-3.2); Glucose 75 mg/dl (74-100); Potassium 4.9 mmoL/L (3.5-5.1); Sodium 140 mmol/L (136-145); Total Protein,Serum 7.8 g/dl (6.3-8.2)
[2022-07-12 12:56] LABS: Thyroid Stimulating Hormone 5.03 uIU/mL (0.465-4.68)
== END ==
PROVIDERS: PCP Nurse Practitioner Family; Visit Provider Family Medicine
DX: I25.10 Atherosclerotic heart disease of native coronary artery without angina pectoris (principal); N17.9 Acute kidney failure, unspecified; E03.9 Hypothyroidism, unspecified
CPT/HCPCS: 36415; 80053; 84443

== ENCOUNTER 2022-07-13 10:36 | Emergency (ER) | payer OTHER, SELFPAY ==
[2022-07-13 10:36] VITALS: BP 112/74; PULSE 71; RESP 19; TEMP 36.8; O2SAT 100; BMI 28.8
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
[2022-07-13 11:31] VITALS: BP 115/74; PULSE 68; RESP 19; TEMP 36.8; O2SAT 99
== END 2022-07-13 11:31 | disposition home or self-care (01) ==
PROVIDERS: Emergency Provider Student in an Organized Health Care Education/Training Program; PCP Family Medicine
DX: S10.81XA Abrasion of other specified part of neck, initial encounter (principal); S59.912A Unspecified injury of left forearm, initial encounter; I11.0 Hypertensive heart disease with heart failure; I50.20 Unspecified systolic (congestive) heart failure; Z87.891 Personal history of nicotine dependence; Z79.82 Long term (current) use of aspirin; V48.0XXA Car driver injured in noncollision transport accident in nontraffic accident, initial encounter; Z23 Encounter for immunization
CPT/HCPCS: 73090; 73130; 90715; 96372; 99283; 99284

== ENCOUNTER → 2022-07-18 09:43 | Outpatient (CLI) | payer OTHER, SELFPAY ==
--- NOTE | 2022-07-18 09:48 | XR_ITS ---
FINAL REPORT CLINICAL HISTORY: chronic right shoulder pain COMPARISON: None FINDINGS: RIGHT SHOULDER Three views demonstrate no acute fracture or dislocation. There are advanced hypertrophic changes of the glenohumeral joint with subchondral sclerosis and osteophytes present. There is mild degenerative change of the acromioclavicular joint.. The soft tissues are unremarkable. IMPRESSION: Advanced degenerative change of the glenohumeral joint with hypertrophic changes and osteophytes present. Mild acromioclavicular joint degenerative changes present as well. No acute bony abnormality identified. Reviewed, Interpreted and Dictated by Chinmay Zuleta MD Transcribed by Arelis Rivera Authenticated and [facility]
== END ==
PROVIDERS: PCP Nurse Practitioner Family; Visit Provider Nurse Practitioner Family
DX: M25.511 Pain in right shoulder (principal)
CPT/HCPCS: 73030

== ENCOUNTER → 2022-07-24 12:43 | Outpatient (CLI) | payer OTHER, SELFPAY | PROVIDERS: PCP Nurse Practitioner Family; Visit Provider Physician Assistant | DX: I25.10 Atherosclerotic heart disease of native coronary artery without angina pectoris (principal); I42.8 Other cardiomyopathies | CPT/HCPCS: 93306 ==

== ENCOUNTER 2022-10-18 10:00 | Outpatient (RCR) | payer OTHER, SELFPAY ==
--- NOTE | 2022-07-24 15:30 | HMH.OTOPEV ---
OT Inpatient Evaluation Rehab OT Outpatient Eval Start: 07/24/22 15:01 Freq: Status: Active Protocol: Document 07/24/22 15:01 NEO (Rec: 07/24/22 15:30 [facility] [id number]) E-signed By Prudence Jensen, OT Outpatient Therapy Subjective History Subjective History Pt is a 57 year old male who reports to therapy for initial evaluation to right shoulder. Pt reports his right shoulder has been painful for years . 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 Recently, the shoulder has become more painful and stiff. He continues to farm room service associate. He does demonstrate with a decrease in both AROM and strength. He is right hand dominant. Pt has had an X-ray of right shoulder and the following is the findings: Advanced degenerative change of the glenohumeral joint with hypertrophic changes and osteophytes present. Mild acromioclavicular joint degenerative changes present as well. At this time, pt has not seen ortho or had a MRI. Therapist will continue to see patient twice a week in order to address right shoulder deficits. Chief Complaint Pain,Stiff,Weakness Symptom Type Ache,Throb,Sharp,Dull Symptoms Relieved By Rest/Positioning Symptoms Aggravated By Physical Activity,Lifting Prior Functional Limitations None Current Functional Limitations Reaching,Lifting,Housework, Dressing,Sleeping,Recreation Activity Symptom Description Intermittent,Activity Dependent Level of pain today (0-10) 0 Pain scale - at its best (0-10) 0 Pain scale - at its worst (0-10) 8 Shoulder/Elbow Eval Shoulder Objective Measurements Shoulder ROM Right Shoulder Abduction Active Range of 95 degrees Motion (degrees) Shoulder Flexion Active Range of Motion 110 degrees (degrees)
--- NOTE | 2022-08-23 12:00 | HMH.RHREAS ---
Rehab Reassessment Rehab OP Re-assessment Start: 07/24/22 15:01 Freq: Status: Active Protocol: Document 08/23/22 11:09 NEO (Rec: 08/23/22 12:00 NEO [id number]) E-signed By Prudence Jensen OT Rehab Re-assessment Subjective Subjective The steroid shot has kicked in. Objective Objective Notes Pt continues to be seen twice a week to address right shoulder deficits. Each session, pt engages in right shoulder AROM, AAROM, and strengthening exercises. Pt is also passively ranged in all planes at right shoulder: flexion, abduction, ER, and IR . Modalities are provided in order to decrease pain/ inflammation. Assessment Progress Assessment Progressing as Expected Assessment Notes Pt very consistent about attending therapy sessions. Pt reports improved pain since he hand an injection in right shoulder. Pt now rates his worst pain at a 5/10 pain which is improved. Pt's AROM has improved since initial re- assessment. Current AROM R shoulder Flex: 125 degrees Abd: 118 degrees ER: 70 degrees IR: 70 degrees Patient goals met ST-5 Goals Not Met See below Revised Goals LT-5 Plan Plan Continue with OT plan of care. Frequency of Therapy 2x's a week Duration of therapy 4 more weeks Time and Billing Re-Eval Time 11 Re-Eval Billing Units 1 PHYSICIAN CERTIFICATION: I certify the specified therapy services for Alexis Lees are required, authorized, and reviewed every 30 days.
--- NOTE | 2022-09-20 11:16 | HMH.RHREAS ---
Rehab Reassessment Rehab OP Re-assessment Start: 07/24/22 15:01 Freq: Status: Active Protocol: Document 09/20/22 10:24 NEO (Rec: 09/20/22 11:16 NEO [id number]) E-signed By Prudence Jensen OT Rehab Re-assessment Subjective Subjective It's not hurting as much, but still popping. Objective Objective Notes Pt continues to be seen twice a week to address right shoulder deficits. Each session, pt engages in right shoulder AROM, AAROM, and strengthening exercises. Pt is also passively ranged in all planes at right shoulder: flexion, abduction, ER, and IR . Modalities are provided in order to decrease pain/ inflammation. Assessment Progress Assessment Progressing as Expected Assessment Notes Pt is normally very consistent about attending therapy sessions. He has not been seen for 16 days due to insurance issues with getting visits approved. Pt reports improved pain since last re- assessment. Pt now rates his worst pain at a 3/10 pain doing daily activities. His AROM has improved slightly since last re-assessment. Current AROM R shoulder Flex: 130 degrees Abd: 122 degrees ER: 80 degrees IR: 70 degrees Patient goals met [address]-5 LT and 5 Goals Not Met See below Revised Goals LT-3 Plan Plan Continue with OT plan of care. Frequency of Therapy 2x's a week Duration of therapy 4 more weeks Time and Billing Re-Eval Time 12 Re-Eval Billing Units 1 PHYSICIAN CERTIFICATION: I certify the specified therapy services for Alexis Lees are required, authorized, and reviewed every 30 days.
== END 2022-10-18 10:05 | disposition home or self-care (01) ==
LOC: OT 10:00
PROVIDERS: Visit Provider Nurse Practitioner Family
DX: M25.511 Pain in right shoulder (principal)
CPT/HCPCS: 97010; 97014; 97110; 97140; 97164; 97166; G0283

== ENCOUNTER → 2022-11-15 10:37 | Outpatient (CLI) | payer OTHER, SELFPAY ==
[2022-11-15 10:47] LABS: Microscopic, Urine URINE MICROSCOPIC (MICROSCOPIC)
[2022-11-15 11:00] LABS: Basophils % 0.6 % (0.1-2.0); Eosinophils # 0.3 K/mm3 (0.0-0.4); Eosinophils % 5.7 % (0.1-12.0); Hematocrit 42.2 % (42.0-52.0); Hemoglobin 13.6 g/dL (14.1-18.0); Lymphocytes # 1.2 K/mm3 (0.7-4.5); Lymphocytes % 22.6 % (10-50); Mean Corpuscular HGB Conc 32.1 g/dL (31.8-35.4); Mean Corpuscular Hemoglobin 30.4 pg (27.0-31.2); Mean Corpuscular Volume 94.5 fl (80-94); Mean Platelet Volume 7.6 fl (7.4-10.4); Monocytes # 0.3 K/mm3 (0.1-1.0); Monocytes % 6.3 % (1.7-9.3); Neutrophils # 3.5 K/mm3 (1.8-7.8); Neutrophils % 64.8 % (37.0-80.0); Platelet Count 216 K/mm3 (142-424); Red Blood Count 4.47 M/mm3 (4.60-6.20); Red Cell Distribution Width 13.7 % (11.5-17.5); White Blood Count 5.3 K/mm3 (4.8-10.8)
[2022-11-15 11:24] LABS: Appearance,Urine CLEAR (Clear); Bilirubin,Urine Negative (Negative); Blood, Urine Negative (Negative); Color,Urine YELLOW (Yellow); Glucose,Urine (UA) Negative (Negative); Ketones,Urine Negative (Negative); Leukocyte Esterase,Urine Negative (Negative); Nitrate,Urine Negative (Negative); PH,Urine 6.5 (5.0-8.5); Protein,Urine Negative (Negative); Urobilinogen,Urine 0.2 EU/dl (0.2)
[2022-11-15 11:32] LABS: Creatinine,Urine Random 52 mg/dL (Not Estab.)
[2022-11-15 11:47] LABS: Bacteria,Urine Trace /lpf
[2022-11-15 11:48] LABS: Albumin Level 3.9 g/dl (3.5-5.0); Blood Urea Nitrogen 14 mg/dl (9-20); Calcium 8.9 mg/dl (8.4-10.2); Carbon Dioxide 28 mmol/L (22.0-30.0); Chloride 105 mmol/L (98-107); Estimated Glomerular Filt Rate 57 ml/min (>60); GFR (African American) 68 ML/MIN (>60); Glucose 93 mg/dl (74-100); Phosphorous 3.3 mg/dl (2.5-4.5); Sodium 141 mmol/L (136-145)
[2022-11-15 12:00] LABS: Intact Parathyroid Hormone 87.1 pg/mL (7.5-53.5)
[2022-11-15 12:04] LABS: 25-OH Vitamin D, Total 54.5 ng/mL (30-100)
== END ==
PROVIDERS: PCP Nurse Practitioner Family; Visit Provider Internal Medicine Nephrology
DX: N18.32 Chronic kidney disease, stage 3b (principal); E55.9 Vitamin D deficiency, unspecified; Z68.29 Body mass index [BMI] 29.0-29.9, adult; Z87.891 Personal history of nicotine dependence
CPT/HCPCS: 36415; 80069; 81001; 82306; 82570; 83970; 84155; 85025

== ENCOUNTER → 2022-11-21 15:05 | Outpatient (POV) | payer OTHER, SELFPAY | PROVIDERS: Visit Provider Internal Medicine Nephrology | DX: Z00.00 Encounter for general adult medical examination without abnormal findings (principal) ==

== ENCOUNTER → 2022-12-03 08:02 | Outpatient (CLI) | payer OTHER, SELFPAY ==
[2022-12-03 08:36] LABS: Chol/HDL Ratio 3.2 (1-3.5); Cholesterol 151 mg/dl (140-200); HDL Cholesterol 47 mg/dl (40-60); Triglycerides 89 mg/dl (30-150); VLDL Cholesterol 18 mg/dL (0-40)
[2022-12-03 08:52] LABS: Free T4 (Free Thyroxine) 1.39 ng/dl (0.78-2.19)
[2022-12-03 09:32] LABS: Thyroid Stimulating Hormone 3.59 uIU/mL (0.465-4.68)
== END ==
PROVIDERS: PCP Nurse Practitioner Family; Visit Provider Nurse Practitioner Family
DX: E03.9 Hypothyroidism, unspecified (principal); E78.5 Hyperlipidemia, unspecified
CPT/HCPCS: 36415; 80061; 84439; 84443

== ENCOUNTER 2023-03-31 13:39 | Outpatient (CLI) | payer OTHER, SELFPAY ==
[2023-03-31 14:56] LABS: Alanine Aminotransferase 33 U/L (12-78); Albumin Level 4.2 g/dl (3.5-5.0); Albumin/Globulin Ratio 1.4 (1.1-1.8); Alkaline Phosphatase 67 U/L (38-126); Anion Gap 11.2 mEq/L (5-15); Aspartate Amino Transferase 35 U/L (17-59); Bilirubin,Total 0.9 mg/dl (0.2-1.3); Blood Urea Nitrogen 16 mg/dl (9-20); Calcium 9.2 mg/dl (8.4-10.2); Carbon Dioxide 27 mmol/L (22.0-30.0); Chloride 105 mmol/L (98-107); Estimated Glomerular Filt Rate 52 ml/min (>60); GFR (African American) 63 ML/MIN (>60); Glucose 86 mg/dl (74-100); Potassium 5.2 mmoL/L (3.5-5.1); Sodium 138 mmol/L (136-145); Total Protein,Serum 7.2 g/dl (6.3-8.2)
[2023-03-31 15:00] LABS: Free T4 (Free Thyroxine) 1.15 ng/dl (0.78-2.19)
[2023-03-31 15:26] LABS: Thyroid Stimulating Hormone 5.32 uIU/mL (0.465-4.68)
== END 2023-03-31 23:59 ==
LOC: LAB.DROPOF 13:40
PROVIDERS: PCP Nurse Practitioner Family; Visit Provider Nurse Practitioner Family
DX: N18.32 Chronic kidney disease, stage 3b (principal); E03.9 Hypothyroidism, unspecified; Z79.899 Other long term (current) drug therapy
CPT/HCPCS: 80053; 84439; 84443

== ENCOUNTER 2023-05-09 08:30 | Outpatient (CLI) | payer OTHER, SELFPAY ==
--- NOTE | 2023-05-09 | CA_ITS ---
APPROVED REPORT EXAM: Comprehensive 2D, Doppler, and color-flow Echocardiogram Patient Access Representative: Estrella Lacey CRT Ht: 5 ft 8 in Wt: 203lbs BSA: 2.06 BP: 137/89 mmHg Indications: Congestive Heart Failure, COPD, CAD, Hyperlipidemia, Cardiomyopathy, Hypertension/HDD, nstemi 2022 EF 37% EF ECHO 07/24/22 2D Dimensions LA Volume 46.00 mL LA Volume Index 21.80 mL/m2 (M/F) 16-34 M-Mode Dimensions RVDd 2.97 cm (0.9-2.6) LA Diam 3.20 cm (1.9-4.0) LVDd 4.96 cm (3.5-5.7) LVDs 3.23 cm (3.5-5.7) IVSd 1.57 cm (0.6-1.1) PWd 0.93 cm (0.6-1.1) EF (Teich) 63.90% FS 34.90% EDV (Teich) 116.10 mL TAPSE 1.49 (<1.7) ESV (Teich) 41.90 mL LV Diastology E Decel Time 217 (160-240 msec) E/A Ratio 0.77 MED A' 6.20 cm/s LAT A' 7.60 cm/s Aortic Valve AO Peak GR. 4.50 mmHg Mitral Valve MV E Max Jeremy. 57.0 (40-130 cm/s) MV A Velocity 74.0 (40-130 cm/s) E/A Ratio 0.77 MV PHT 63.0 ms Pulmonary Valve PV Peak Velocity 137.0 (50-150 cm/s) Tricuspid Valve TR P. Velocity 233.00 cm/s RAP Estimate 10.00 mmHg RVSP 31.70 mmHg Left Ventricle The left ventricle is normal size. The left ventricular systolic function is mildly reduced. There is normal left ventricular wall thickness. There is mild global hypokinesis present. Grade 1 diastolic dysfunction is present. LVEF is 45%. Right Ventricle The right ventricle is normal size. The right ventricular systolic function is normal. Atria The left atrium size is normal. The right atrium size is normal. There is no Doppler evidence of interatrial shunt. Aortic Valve The aortic valve is mildly thickened. There is no aortic valvular stenosis. No aortic regurgitation is present. Mitral Valve The mitral valve is normal in structure. No evidence of mitral valve stenosis. There is no mitral valve regurgitation noted. Tricuspid Valve The tricuspid valve leaflets are thin and pliable. Trace tricuspid regurgitation. There is insufficient TR jet to estimate RVSP. Pulmonic Valve The pulmonary valve is normal in structure. Trace pulmonic regurgitation. Great Vessels The aortic root is normal in size. The ascending aorta is borderline dilated, measuring 3.7 cm in diameter. IVC is normal in size and collapses >50% with inspiration. Pericardium There is no pericardial effusion. Other Information Study Quality: Fair Conclusion Mildly reduced LV systolic function (LVEF 45%). No significant valvular stenosis or regurgitation. Compared to prior study from 05/2022, the LVEF is now improved. Electronically signed by : Thalia Worley MD 05/12/2023 22:35:28
== END 2023-05-09 23:59 ==
LOC: RT 08:30
PROVIDERS: PCP Nurse Practitioner Family; Visit Provider Physician Assistant
DX: I25.10 Atherosclerotic heart disease of native coronary artery without angina pectoris (principal); I50.20 Unspecified systolic (congestive) heart failure; I21.4 Non-ST elevation (NSTEMI) myocardial infarction
CPT/HCPCS: 93306

== ENCOUNTER 2023-05-13 13:59 | Outpatient (CLI) | payer OTHER, SELFPAY ==
[2023-05-13 16:25] LABS: Free T4 (Free Thyroxine) 1.34 ng/dl (0.78-2.19)
[2023-05-13 16:40] LABS: Thyroid Stimulating Hormone 7.74 uIU/mL (0.465-4.68)
== END 2023-05-13 23:59 ==
LOC: LAB.DROPOF 14:00
PROVIDERS: PCP Nurse Practitioner Family; Visit Provider Nurse Practitioner Family
DX: E03.9 Hypothyroidism, unspecified (principal)
CPT/HCPCS: 84439; 84443

== ENCOUNTER 2023-05-15 11:42 | Outpatient (CLI) | payer OTHER, SELFPAY ==
[2023-05-15 11:47] LABS: Microscopic, Urine URINE MICROSCOPIC (MICROSCOPIC)
[2023-05-15 12:19] LABS: Appearance,Urine CLEAR (Clear); Bilirubin,Urine Negative (Negative); Blood, Urine Negative (Negative); Color,Urine YELLOW (Yellow); Glucose,Urine (UA) Negative (Negative); Ketones,Urine Negative (Negative); Leukocyte Esterase,Urine Negative (Negative); Nitrate,Urine Negative (Negative); Protein,Urine Negative (Negative); Specific Gravity, Urine >= 1.030 (1.005-1.030); Urobilinogen,Urine 0.2 EU/dl (0.2)
[2023-05-15 12:36] LABS: Bacteria,Urine Trace /lpf; Squamous Epithelial Cell,Urine Occasional #/hpf (0-5)
[2023-05-15 12:41] LABS: Hematocrit 42.9 % (42.0-52.0); Hemoglobin 14.2 g/dL (14.1-18.0); Mean Corpuscular HGB Conc 33.1 g/dL (31.8-35.4); Mean Corpuscular Hemoglobin 32.3 pg (27.0-31.2); Mean Corpuscular Volume 97.5 fl (80-94); Platelet Count 242 K/mm3 (142-424); Red Cell Distribution Width 13.7 % (11.5-17.5)
[2023-05-15 13:27] LABS: Albumin Level 4.2 g/dl (3.5-5.0); Anion Gap 9.4 mEq/L (5-15); Blood Urea Nitrogen 17 mg/dl (9-20); Calcium 9.5 mg/dl (8.4-10.2); Carbon Dioxide 25 mmol/L (22.0-30.0); Chloride 108 mmol/L (98-107); Estimated Glomerular Filt Rate 56 ml/min (>60); GFR (African American) 68 ML/MIN (>60); Glucose 93 mg/dl (74-100); Phosphorous 3.3 mg/dl (2.5-4.5); Potassium 4.4 mmoL/L (3.5-5.1); Sodium 138 mmol/L (136-145)
[2023-05-15 14:04] LABS: Creatinine,Urine Random 165 mg/dL (Not Estab.)
== END 2023-05-15 23:59 ==
LOC: LAB 11:43
PROVIDERS: PCP Nurse Practitioner Family; Visit Provider Internal Medicine Nephrology
DX: N18.9 Chronic kidney disease, unspecified (principal)
CPT/HCPCS: 36415; 80069; 81001; 82570; 84156; 85014; 85018; 85048; 85049

== ENCOUNTER 2023-05-19 14:30 | Outpatient (POV) | payer OTHER, SELFPAY | END 2023-05-19 23:59 | disposition home or self-care (01) | LOC: SC 14:31 | PROVIDERS: Visit Provider Internal Medicine Nephrology | DX: Z00.00 Encounter for general adult medical examination without abnormal findings (principal) ==

== ENCOUNTER 2023-06-25 13:08 | Outpatient (CLI) | payer OTHER, SELFPAY ==
[2023-06-25 14:05] LABS: Free T4 (Free Thyroxine) 0.93 ng/dl (0.78-2.19)
[2023-06-27 08:48] LABS: Testosterone,Total 572 ng/dL (264-916)
== END 2023-06-25 23:59 | disposition home or self-care (01) ==
LOC: LAB.DROPOF 13:08
PROVIDERS: PCP Nurse Practitioner Family; Visit Provider Nurse Practitioner Family
DX: E03.9 Hypothyroidism, unspecified (principal); N52.9 Male erectile dysfunction, unspecified
CPT/HCPCS: 84403; 84439; 84443

== ENCOUNTER 2023-08-07 10:21 | Outpatient (CLI) | payer OTHER, SELFPAY ==
[2023-08-07 10:49] LABS: Free T4 (Free Thyroxine) 1.21 ng/dl (0.78-2.19)
[2023-08-07 11:05] LABS: Thyroid Stimulating Hormone 2.55 uIU/mL (0.465-4.68)
== END 2023-08-07 23:59 | disposition home or self-care (01) ==
LOC: LAB.DROPOF 10:22
PROVIDERS: PCP Nurse Practitioner Family; Visit Provider Nurse Practitioner Family
DX: E03.9 Hypothyroidism, unspecified (principal)
CPT/HCPCS: 84439; 84443

== ENCOUNTER 2023-09-03 10:35 | Outpatient (CLI) | payer OTHER, SELFPAY ==
[2023-09-03 21:35] LABS: Free T4 (Free Thyroxine) 1.41 ng/dl (0.78-2.19)
[2023-09-03 21:49] LABS: Thyroid Stimulating Hormone 2.07 uIU/mL (0.465-4.68)
== END 2023-09-03 23:59 | disposition home or self-care (01) ==
LOC: LAB.DROPOF 09-04 10:36
PROVIDERS: PCP Nurse Practitioner Family; Visit Provider Nurse Practitioner Family
DX: E03.9 Hypothyroidism, unspecified (principal)
CPT/HCPCS: 84439; 84443

== ENCOUNTER 2024-01-20 10:07 | Outpatient (CLI) | payer OTHER, SELFPAY ==
[2024-01-20 10:13] LABS: Microscopic, Urine URINE MICROSCOPIC (MICROSCOPIC)
[2024-01-20 10:42] LABS: Appearance,Urine CLEAR (Clear); Bilirubin,Urine Negative (Negative); Blood, Urine Negative (Negative); Color,Urine YELLOW (Yellow); Glucose,Urine (UA) Negative (Negative); Ketones,Urine Negative (Negative); Leukocyte Esterase,Urine Negative (Negative); Nitrate,Urine Negative (Negative); Protein,Urine Negative (Negative); Specific Gravity, Urine 1.025 (1.005-1.030)
[2024-01-20 10:43] LABS: Hematocrit 43.6 % (42.0-52.0); Hemoglobin 14.3 g/dL (14.1-18.0); Mean Corpuscular HGB Conc 32.9 g/dL (31.8-35.4); Mean Corpuscular Hemoglobin 30.7 pg (27.0-31.2); Mean Corpuscular Volume 93.3 fl (80-94); Platelet Count 255 K/mm3 (142-424); Red Blood Count 4.67 M/mm3 (4.60-6.20); Red Cell Distribution Width 13.5 % (11.5-17.5); White Blood Count 4.4 K/mm3 (4.8-10.8)
[2024-01-20 10:53] LABS: RBC,Urine Occasional #/hpf (0-3); Squamous Epithelial Cell,Urine Occasional #/hpf (0-5); WBC,Urine Occasional #/hpf (0-3)
[2024-01-20 10:56] LABS: Albumin Level 3.9 g/dl (3.5-5.0); Anion Gap 9.7 mEq/L (5-15); Blood Urea Nitrogen 18 mg/dl (9-20); Calcium 8.9 mg/dl (8.4-10.2); Carbon Dioxide 29 mmol/L (22.0-30.0); Chloride 106 mmol/L (98-107); Estimated Glomerular Filt Rate 56 ml/min (>60); GFR (African American) 68 ML/MIN (>60); Glucose 87 mg/dl (74-100); Phosphorous 2.4 mg/dl (2.5-4.5); Potassium 4.7 mmoL/L (3.5-5.1); Sodium 140 mmol/L (136-145)
[2024-01-20 11:01] LABS: Creatinine,Urine Random 197 mg/dL (Not Estab.)
[2024-01-20 11:08] LABS: Intact Parathyroid Hormone 104.8 pg/mL (7.5-53.5)
[2024-01-20 11:12] LABS: 25-OH Vitamin D, Total 51.1 ng/mL (30-100)
== END 2024-01-20 23:59 | disposition home or self-care (01) ==
LOC: LAB 10:08
PROVIDERS: PCP Nurse Practitioner Family; Visit Provider Internal Medicine Nephrology
DX: I12.9 Hypertensive chronic kidney disease with stage 1 through stage 4 chronic kidney disease, or unspecified chronic kidney disease (principal); E66.9 Obesity, unspecified; Z68.30 Body mass index [BMI] 30.0-30.9, adult; Z87.891 Personal history of nicotine dependence
CPT/HCPCS: 36415; 80069; 81001; 82306; 82570; 83970; 84156; 85027

== ENCOUNTER 2024-02-26 13:17 | Outpatient (CLI) | payer OTHER, SELFPAY ==
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
== END 2024-02-26 23:59 | disposition home or self-care (01) ==
LOC: RAD 13:19
PROVIDERS: PCP Nurse Practitioner Family; Visit Provider Orthopaedic Surgery
DX: M25.511 Pain in right shoulder (principal)
CPT/HCPCS: 73030

== ENCOUNTER 2024-03-03 10:44 | Outpatient (CLI) | payer OTHER, SELFPAY ==
[2024-03-03 19:00] LABS: Free T4 (Free Thyroxine) 1.15 ng/dl (0.78-2.19)
[2024-03-03 19:26] LABS: Thyroid Stimulating Hormone 5.68 uIU/mL (0.465-4.68)
[2024-03-03 20:46] LABS: HIV Combo NEGATIVE (Negative)
[2024-03-03 20:52] LABS: Hepatitis C Ab Qual. W/ RFX NEGATIVE (Negative)
== END 2024-03-03 23:59 | disposition home or self-care (01) ==
LOC: LAB.DROPOF 03-04 10:44
PROVIDERS: PCP Nurse Practitioner Family; Visit Provider Nurse Practitioner Family
DX: E03.9 Hypothyroidism, unspecified (principal); Z11.59 Encounter for screening for other viral diseases; Z11.4 Encounter for screening for human immunodeficiency virus [HIV]
CPT/HCPCS: 84439; 84443; 86803; 87389

== ENCOUNTER 2024-05-13 12:48 | Outpatient (CLI) | payer OTHER, SELFPAY ==
--- NOTE | 2024-05-13 | CA_ITS ---
APPROVED REPORT EXAM: Comprehensive 2D, Doppler, and color-flow Echocardiogram [employer] Teacher: BE Elias, RVS Ht: 5 ft 8 in Wt: 202lbs BSA: 2.05 BP: 131/84 mmHg Indications: CAD, Hx-CM, COPD, Ex-smoker, HTN, HLD 2D Dimensions Aortic Root 3.15 cm LVEF (Muniz's) 56.30 % Left Atrium 2.67 cm LV Volume 83.70 mL RVID Base (AP4) 3.23 cm (M/F) 2.5-4.1 LV Volume Index 40.597813 mL/m2 M: 34 - 74 LVOT 2.00 cm (M/F) 1.5-2.5 LA Volume 42.50 mL LA Volume Index 20.890931 mL/m2 (M/F) 16-34 EF AP4 51.70 % EF AP2 55.0 % EF BP 56.3 % GL Strain -11.8 % M-Mode Dimensions RVDd 1.65 cm (0.9-2.6) LVDd 5.74 cm (3.5-5.7) Ao Diam 3.75 cm (2.0-3.7) LVDs 2.93 cm (3.5-5.7) IVSd 1.12 cm (0.6-1.1) PWd 1.12 cm (0.6-1.1) EF (Teich) 79.70% EPSs 1.01 cm FS 49.00% EDV (Teich) 162.60 mL TAPSE 2.06 (<1.7) ESV (Teich) 33.00 mL LV Diastology E Decel Time 228 (160-240 msec) E/A Ratio 0.71 MED E' 7.8 (>= 7 cm/sec) MED A' 5.80 cm/s E'/MED E' Ratio 6.60 (<= 14) LAT E' 7.3 (>= 10 cm/sec) LAT A' 8.40 cm/s E/LAT E' Ratio 7.05 (<= 14) Aortic Valve LVOT Max 90.0 (70-110 cm/s) DARLENE Index 1.22 cm2/m2 LVOT VTI 14.68 cm AoV Peak Jeremy. 106.0 (50-130 cm/s) AO Mean GR. 2.20 (<5 mmHg) AO VTI 18.4 (18-25 cm) DARLENE (VTI) 2.50 (2.5-4.5 cm2) Mitral Valve MV E Max Jeremy. 52.0 (40-130 cm/s) MV A Velocity 72.0 (40-130 cm/s) E/A Ratio 0.71 MV Decel. Time 228 (160-240 ms) Tricuspid Valve TR P. Velocity 217.00 cm/s RAP Estimate 10.00 mmHg RVSP 28.80 mmHg Left Ventricle The left ventricle is normal size. The left ventricular systolic function is mildly reduced. There is increased LV wall thickness. There is mild global hypokinesis present. Grade 1 diastolic dysfunction is present. LVEF is 45%. Right Ventricle The right ventricle is normal size. The right ventricular systolic function is normal. Atria The left atrium size is normal. The right atrium size is normal. There is no Doppler evidence of interatrial shunt. Aortic Valve The aortic valve is mildly thickened. There is no aortic valvular stenosis. No aortic regurgitation is present. Mitral Valve The mitral valve is normal in structure. No evidence of mitral valve stenosis. Trace mitral regurgitation. Tricuspid Valve Tricuspid valve is grossly normal in structure and function. Mild tricuspid regurgitation. RVSP is 20-25 mmHg. Pulmonic Valve The pulmonary valve is normal in structure. Trace pulmonic regurgitation. Great Vessels The aortic root is normal in size. IVC is normal in size and collapses >50% with inspiration. Pericardium There is no pericardial effusion. Other Information Study Quality: Adequate Conclusion Mildly reduced LV systolic function (LVEF 45%). Mild TR. Compared to prior study from 05/09/2023, the LVEF is unchanged. Electronically signed by : Thalia Worley MD 05/25/2024 12:04:47
== END 2024-05-13 23:59 | disposition home or self-care (01) ==
LOC: RT 12:48
PROVIDERS: PCP Nurse Practitioner Family; Visit Provider Nurse Practitioner Family
DX: I36.1 Nonrheumatic tricuspid (valve) insufficiency (principal); I50.20 Unspecified systolic (congestive) heart failure
CPT/HCPCS: 93306

== ENCOUNTER 2024-06-09 07:07 | Outpatient (CLI) | payer OTHER, SELFPAY ==
[2024-06-09 07:54] LABS: Basophils % 0.6 % (0.1-2.0); Eosinophils # 0.4 Kmm3 (0.0-0.4); Eosinophils % 6.4 % (0.1-12.0); Hematocrit 43.7 % (42.0-52.0); Hemoglobin 14.5 g/dL (14.1-18.0); Lymphocytes # 1.3 K/mm3 (0.7-4.5); Lymphocytes % 19.2 % (10-50); Mean Corpuscular HGB Conc 33.2 g/dL (31.8-35.4); Mean Corpuscular Volume 96.5 fl (80-94); Mean Platelet Volume 9.3 fl (7.4-10.4); Monocytes # 0.6 K/mm3 (0.1-1.0); Monocytes % 8.8 % (1.7-9.3); Neutrophils # 4.4 K/mm3 (1.8-7.8); Neutrophils % 64.7 % (37.0-80.0); Nucleated Red Blood Cells # 0 10^3/uL; Nucleated Red Blood Cells % 0 %; Platelet Count 230 K/mm3 (142-424); Red Blood Count 4.53 M/mm3 (4.60-6.20); Red Cell Distribution Width 13.2 % (11.5-17.5); Red Cell Distribution Width-SD 47.3 fL; White Blood Count 6.8 K/mm3 (4.8-10.8)
[2024-06-09 08:40] LABS: Albumin Level 4.1 g/dl (3.5-5.0); Chloride 107 mmol/L (98-107)
[2024-06-09 08:41] LABS: Potassium 5.1 mmoL/L (3.5-5.1); Sodium 139 mmol/L (136-145)
[2024-06-09 08:43] LABS: Anion Gap 11.1 mEq/L (5-15); Bilirubin,Unconjugated 0.5 mg/dL (0.0-1.1); Blood Urea Nitrogen 25 mg/dl (9-20); Carbon Dioxide 26 mmol/L (22.0-30.0); Estimated Glomerular Filt Rate 56 ml/min (>60); GFR (African American) 68 ML/MIN (>60)
[2024-06-09 08:44] LABS: Alanine Aminotransferase 18 U/L (12-78); Alkaline Phosphatase 65 U/L (38-126); Aspartate Amino Transferase 31 U/L (17-59); Bilirubin,Indirect 0.5 mg/dL (0.0-0.9); Bilirubin,Total 0.5 mg/dl (0.2-1.3); Calcium 9.2 mg/dl (8.4-10.2); Chol/HDL Ratio 3.8 (1-3.5); Cholesterol 194 mg/dl (140-200); Glucose 93 mg/dl (74-100); HDL Cholesterol 51 mg/dl (40-60); Total Protein,Serum 7.4 g/dl (6.3-8.2); Triglycerides 158 mg/dl (30-150); VLDL Cholesterol 32 mg/dL (0-40)
[2024-06-09 08:55] LABS: Direct LDL Cholesterol 89.47 mg/dL (100-129)
[2024-06-09 09:02] LABS: Free T4 (Free Thyroxine) 0.97 ng/dl (0.78-2.19)
== END 2024-06-09 23:59 | disposition home or self-care (01) ==
LOC: LAB 07:08
PROVIDERS: PCP Nurse Practitioner Family; Visit Provider Nurse Practitioner Family
DX: E78.5 Hyperlipidemia, unspecified (principal); I11.0 Hypertensive heart disease with heart failure; I50.20 Unspecified systolic (congestive) heart failure; Z87.891 Personal history of nicotine dependence
CPT/HCPCS: 36415; 80048; 80061; 80076; 84439; 84443; 85025

== ENCOUNTER 2024-07-20 12:56 | Outpatient (CLI) | payer OTHER, SELFPAY ==
[2024-07-20 13:03] LABS: Microscopic, Urine URINE MICROSCOPIC (MICROSCOPIC)
[2024-07-20 13:25] LABS: Hematocrit 42.4 % (42.0-52.0); Hemoglobin 13.7 g/dL (14.1-18.0); Mean Corpuscular HGB Conc 32.3 g/dL (31.8-35.4); Mean Corpuscular Hemoglobin 31.1 pg (27.0-31.2); Mean Corpuscular Volume 96.4 fl (80-94); Nucleated Red Blood Cells # 0 10^3/uL; Nucleated Red Blood Cells % 0 %; Platelet Count 188 K/mm3 (142-424); Red Cell Distribution Width 12.8 % (11.5-17.5); Red Cell Distribution Width-SD 45.1 fL; White Blood Count 6.5 K/mm3 (4.8-10.8)
[2024-07-20 13:29] LABS: Appearance,Urine CLEAR (Clear); Bilirubin,Urine Negative (Negative); Blood, Urine Negative (Negative); Color,Urine YELLOW (Yellow); Glucose,Urine (UA) Negative (Negative); Ketones,Urine Negative (Negative); Leukocyte Esterase,Urine Negative (Negative); Nitrate,Urine Negative (Negative); Protein,Urine Negative (Negative); Specific Gravity, Urine 1.025 (1.005-1.030); Urobilinogen,Urine 0.2 EU/dl (0.2)
[2024-07-20 13:45] LABS: Creatinine,Urine Random 200 mg/dL (Not Estab.)
[2024-07-20 14:05] LABS: Squamous Epithelial Cell,Urine Occasional #/hpf (0-5); WBC,Urine Occasional #/hpf (0-3)
[2024-07-20 14:08] LABS: Albumin Level 3.8 g/dl (3.5-5.0); Anion Gap 7.1 mEq/L (5-15); Blood Urea Nitrogen 24 mg/dl (9-20); Calcium 8.9 mg/dl (8.4-10.2); Carbon Dioxide 30 mmol/L (22.0-30.0); Chloride 109 mmol/L (98-107); Estimated Glomerular Filt Rate 52 ml/min (>60); GFR (African American) 62 ML/MIN (>60); Glucose 98 mg/dl (74-100); Phosphorous 2.2 mg/dl (2.5-4.5); Potassium 4.1 mmoL/L (3.5-5.1); Sodium 142 mmol/L (136-145)
[2024-07-20 14:22] LABS: Intact Parathyroid Hormone 73.3 pg/mL (7.5-53.5)
[2024-07-20 14:25] LABS: Free T4 (Free Thyroxine) 1.51 ng/dl (0.78-2.19)
[2024-07-20 14:26] LABS: 25-OH Vitamin D, Total 43.8 ng/mL (30-100)
[2024-07-20 14:42] LABS: Thyroid Stimulating Hormone 1.13 uIU/mL (0.465-4.68)
== END 2024-07-20 23:59 | disposition home or self-care (01) ==
LOC: LAB 12:56
PROVIDERS: Student in an Organized Health Care Education/Training Program; PCP Nurse Practitioner Family; Visit Provider Nurse Practitioner Family
DX: N18.31 Chronic kidney disease, stage 3a (principal)
CPT/HCPCS: 36415; 80069; 81001; 82043; 82306; 82570; 83970; 84156; 84439; 84443; 85027